=== PATIENT | male | born 1955 | race Caucasian/White ===

== ENCOUNTER 2023-08-26 16:42 | Emergency (ER) | payer OTHER ==
[~2023-08-26] VITALS: Ht 177.8 cm; Wt 86.2 kg
[2023-08-26 16:47] VITALS: BP 141/89; PULSE 84; RESP 18; TEMP 98.3; O2SAT 95
[2023-08-26] MEDS ORDERED: MORPHINE SULFATE 2 MG/ML SYR ONE (16:57)
[2023-08-26] MEDS: MORPHINE SULFATE 4 MG/ML SYR IM ONE (17:04)
[2023-08-26] MEDS: MORPHINE SULFATE 4 MG/ML SYR IVP ONE ×2 (17:43→19:38)
[2023-08-26 19:14] VITALS: PULSE 64; O2SAT 94
[2023-08-26] MEDS ORDERED: IBUP-2213 PO (19:27)
[2023-08-26] MEDS ORDERED: ACET-8905 PO (19:27)
[2023-08-26 20:16] VITALS: BP 112/81; PULSE 64; RESP 18; TEMP 98.3; O2SAT 94
[2023-08-27] MEDS ORDERED: TRAM50TA3 PO (06:32)
== END 2023-08-26 20:16 | disposition home or self-care (01) ==
LOC: MED 16:42
DX: S22.41XA Multiple fractures of ribs, right side, initial encounter for closed fracture (principal); R10.9 Unspecified abdominal pain; Z98.890 Other specified postprocedural states; Z79.899 Other long term (current) drug therapy; W18.39XA Other fall on same level, initial encounter; Y92.89 Other specified places as the place of occurrence of the external cause; Y93.89 Activity, other specified; Y99.8 Other external cause status
CPT/HCPCS: 71101; 73030; 96372; 96374; 96376; 99285; J2270